=== PATIENT | male | born 1945 | race Caucasian/White ===

== ENCOUNTER 2019-03-02 11:11 | Inpatient (IN) | payer MEDICARE ==
[2019-03-02 12:28] LABS: O2 DELIVERY DEVICE ROOM AIR
[2019-03-02 12:36] LABS: BICARBONATE,ARTERIAL 31.6 mm/L (22.0-26.0); O2 SATURATION ARTERIAL 70 % (95-98); PCO2 ARTERIAL 61 mm/Hg0 (35-45); PO2 ARTERIAL 41 mm/Hg (80-100)
[2019-03-02 12:45] LABS: CHLORIDE,CL 102 mEq/L (98-106); SODIUM,NA 141 mEq/L (136-145)
[2019-03-02] MEDS: Levofloxacin/Dextrose 5%-Water 500 MG in Premix Bag 1 BAG IV SCH (13:00)
[2019-03-02] MEDS ORDERED: Sodium Chloride 0.9% 10 ML Syringe FLUSH PRN (13:01)
[2019-03-02] MEDS ORDERED: Temazepam 15 MG Cap PO PRN (13:01)
[2019-03-02] MEDS ORDERED: Formoterol/Mometasone 200-5 MCG 8.8 GM Inhaler IH PRN (13:03)
[2019-03-02] MEDS: methylPREDNISolone Sodium Succinate 125 MG/2 ML SDV IVPUSH SCH (13:04)
[2019-03-02] MEDS ORDERED: Albuterol 0.083% 2.5 MG/3 ML Neb Soln NEB PRN (13:05)
[2019-03-02] MEDS ORDERED: Levofloxacin/Dextrose 5%-Water 100 ML IV ONE (13:06)
[2019-03-02] MEDS: Albuterol/Ipratropium 3.0-0.5 MG/3 ML Neb Soln NEB SCH ×2 (15:45→20:03)
[2019-03-02] MEDS: Enoxaparin 40 MG/0.4 ML Syringe SUBCUT SCH (15:46)
[2019-03-03] MEDS: Folic Acid 1 MG Tab PO SCH (07:58)
[2019-03-03] MEDS: Finasteride 5 MG Tab PO SCH (07:58)
[2019-03-03] MEDS: Tamsulosin 0.4 MG Cap.ER PO SCH (07:58)
[2019-03-03] MEDS: Albuterol/Ipratropium 3.0-0.5 MG/3 ML Neb Soln NEB SCH ×4 (07:58→20:41)
[2019-03-03] MEDS: Pantoprazole 40 MG Tab.CR PO SCH (07:58)
[2019-03-03] MEDS: atorvaSTATin 20 MG Tab PO SCH (07:59)
[2019-03-03] MEDS: amLODIPine 2.5 MG Tab PO SCH (07:59)
[2019-03-03] MEDS: Lisinopril 20 MG Tab PO SCH (07:59)
[2019-03-03] MEDS: Metoprolol Succinate 25 MG Tab.ER PO SCH (07:59)
[2019-03-03] MEDS: Aspirin 81 MG Tab.EC PO SCH (07:59)
[2019-03-03] MEDS: methylPREDNISolone Sodium Succinate 125 MG/2 ML SDV IVPUSH SCH ×2 (08:00→15:43)
--- NOTE | 2019-03-03 09:47 | PCM.PN ---
- General Info Date of Service: 03/03/19 Admission Dx/Problem (Free Text): COPD Exacerbation, severe chronic disease Functional Status: Reports: Pain Controlled, Tolerating Diet, Ambulating - Review of Systems General: Reports: Weakness, Fatigue. Denies: Fever, Malaise HEENT: Denies: Rhinitis Pulmonary: Reports: Shortness of Breath, Cough, Sputum, Wheezing Cardiovascular: Reports: Edema. Denies: Chest Pain, Lightheadedness Gastrointestinal: Denies: Abdominal Pain, Nausea, Vomiting Genitourinary: Reports: No Symptoms Musculoskeletal: Reports: No Symptoms Skin: Reports: No Symptoms Neurological: Reports: No Symptoms - Patient Data Vitals - Most Recent: Last Vital Signs Temp 97.7 F 03/03/19 07:01 Pulse 55 L 03/03/19 07:59 Resp 20 03/03/19 07:01 BP 139/68 03/03/19 07:59 Pulse Ox 92 L 03/03/19 07:01 Weight - Most Recent: 201 lb Lab Results Last 24 Hours: Laboratory Results - last 24 hr 03/02/19 03/02/19 03/02/19 Range/Units 12:15 12:25 12:25 WBC 7.6 (5.0-10.0) 10^3/uL RBC 4.89 (4.50-6.00) 10^6/uL Hgb 17.8 (14.0-18.0) g/dL Hct 54.3 H (40.0-54.0) % MCV 111.0 H (82.0-94.0) fL MCH 36.4 H (27.0-32.0) pg MCHC 32.8 L (33.0-38.0) g/dL RDW Coeff of Nasim 14.0 (11.0-15.0) % Plt Count 237 (150-400) 10^3/uL Neut % (Auto) 72.3 (35-85) % Lymph % (Auto) 13.5 (10-55) % [place] % (Auto) 11.0 (0-16) % Eos % (Auto) 2.8 (0-5) % Baso % (Auto) 0.4 (0-3) % Neut # (Auto) 5.48 (1.80-7.00) 10^3/uL Lymph # (Auto) 1.02 (1.00-4.80) 10^3/uL [place] # (Auto) 0.83 H (0.00-0.80) 10^3/uL Eos # (Auto) 0.21 (0.00-0.45) 10^3/uL Baso # (Auto) 0.03 10^3/uL D-Dimer, Quantitative (0.00-0.50) ABG pH 7.32 L (7.35-7.45) ABG pCO2 61 H (35-45) mm/Hg0 ABG pO2 41 L (80-100) mm/Hg ABG HCO3 31.6 H (22.0-26.0) mm/L ABG O2 Saturation 70 L (95-98) % ABG Base Excess 6.0 H (-2.0-3.0) O2 Delivery Device Room air Sodium (136-145) mEq/L Potassium (3.5-5.0) mEq/L Chloride (98-106) mEq/L Carbon Dioxide (21-32) mmol/L BUN (7-18) mg/dL Creatinine (0.7-1.3) mg/dL Est Cr Clr Drug Dosing Estimated GFR (MDRD) (>=60) mL/min Glucose (75-99) mg/dL Calcium (8.4-10.1) mg/dL Total Bilirubin (0.0-1.0) mg/dL AST (15-37) U/L ALT (12-78) U/L Alkaline Phosphatase (46-116) U/L Troponin I < 0.017 (0.00-0.06) ng/mL C-Reactive Protein (0.2-0.8) mg/dL NT-Pro-B Natriuret Pep 710 (0-1000) pg/mL Total Protein (6.4-8.2) g/dL Albumin (3.4-5.0) g/dL Urine Color (YELLOW) Urine Appearance (CLEAR) Urine pH (4.5-8.0) Ur Specific [place] (1.003-1.020) Urine Protein (NEGATIVE) mg/dL Urine Glucose (UA) (NEGATIVE) mg/dL Urine Ketones (NEGATIVE) mg/dL Urine Occult Blood (NEGATIVE) Urine Nitrite (NEGATIVE) Urine Bilirubin (NEGATIVE) Urine Urobilinogen (0.2-1.0) EU/dL Ur Leukocyte Esterase (NEGATIVE) Urine RBC (0-5) /HPF Urine WBC (0-5) /HPF 03/02/19 03/02/19 03/02/19 Range/Units 12:25 13:01 13:23 WBC (5.0-10.0) 10^3/uL RBC (4.50-6.00) 10^6/uL Hgb (14.0-18.0) g/dL Hct (40.0-54.0) % MCV (82.0-94.0) fL MCH (27.0-32.0) pg MCHC (33.0-38.0) g/dL RDW Coeff of [place]im (11.0-15.0) % Plt Count (150-400) 10^3/uL Neut % (Auto) (35-85) % Lymph % (Auto) (10-55) % [place] % (Auto) (0-16) % Eos % (Auto) (0-5) % Baso % (Auto) (0-3) % Neut # (Auto) (1.80-7.00) 10^3/uL Lymph # (Auto) (1.00-4.80) 10^3/uL [place] # (Auto) (0.00-0.80) 10^3/uL Eos # (Auto) (0.00-0.45) 10^3/uL Baso # (Auto) 10^3/uL D-Dimer, Quantitative 0.47 (0.00-0.50) ABG pH (7.35-7.45) ABG pCO2 (35-45) mm/Hg0 ABG pO2 (80-100) mm/Hg ABG HCO3 (22.0-26.0) mm/L ABG O2 Saturation (95-98) % ABG Base Excess (-2.0-3.0) O2 Delivery Device Sodium 141 (136-145) mEq/L Potassium 4.5 (3.5-5.0) mEq/L Chloride 102 (98-106) mEq/L Carbon Dioxide 36 H (21-32) mmol/L BUN 9 (7-18) mg/dL Creatinine 1.0 (0.7-1.3) mg/dL Est Cr Clr Drug Dosing TNP Estimated GFR (MDRD) > 60 (>=60) mL/min Glucose 119 H (75-99) mg/dL Calcium 8.8 (8.4-10.1) mg/dL Total Bilirubin 0.7 (0.0-1.0) mg/dL AST 12 L (15-37) U/L ALT 23 (12-78) U/L Alkaline Phosphatase 75 (46-116) U/L Troponin I (0.00-0.06) ng/mL C-Reactive Protein 1.9 H (0.2-0.8) mg/dL NT-Pro-B Natriuret Pep (0-1000) pg/mL Total Protein 6.5 (6.4-8.2) g/dL Albumin 3.4 (3.4-5.0) g/dL Urine Color Yellow (YELLOW) Urine Appearance Clear (CLEAR) Urine pH 5.0 (4.5-8.0) Ur Specific [place] <= 1.005 (1.003-1.020) Urine Protein Negative (NEGATIVE) mg/dL Urine Glucose (UA) Negative (NEGATIVE) mg/dL Urine Ketones Negative (NEGATIVE) mg/dL Urine Occult Blood Negative (NEGATIVE) Urine Nitrite Negative (NEGATIVE) Urine Bilirubin Negative (NEGATIVE) Urine Urobilinogen 0.2 (0.2-1.0) EU/dL Ur Leukocyte Esterase Negative (NEGATIVE) Urine RBC Not seen (0-5) /HPF Urine WBC Not seen (0-5) /HPF Isra Results Last 24 Hours: Microbiology 03/02/19 13:01 Gram Stain - Final Sputum - Expectorated Sputum Culture - Preliminary Med Orders - Current: Current Medications Albuterol (Proventil Neb Soln) 2.5 mg NEB Q4H PRN PRN Reason: Dyspnea Albuterol/Ipratropium (Duoneb 3.0-0.5 Mg/3 Ml) 3 ml NEB QIDRT [facility] Last Admin: 03/03/19 07:58 Dose: 3 ml Amlodipine Besylate (Norvasc) 7.5 mg PO DAILY [facility] Last Admin: 03/03/19 07:59 Dose: 7.5 mg Aspirin (Halfprin) 81 mg PO DAILY [facility] Last Admin: 03/03/19 07:59 Dose: 81 mg Atorvastatin Calcium (Lipitor) 20 mg PO DAILY [facility] Last Admin: 03/03/19 07:59 Dose: 20 mg Enoxaparin Sodium (Lovenox) 40 mg SUBCUT Q24H [facility] Last Admin: 03/02/19 15:46 Dose: 40 mg Finasteride (Proscar) 5 mg PO DAILY [facility] Last Admin: 03/03/19 07:58 Dose: 5 mg Folic Acid (Folic Acid) 1 mg PO DAILY [facility] Last Admin: 03/03/19 07:58 Dose: 1 mg Levofloxacin/Dextrose 500 mg/ (Premix) 100 mls @ 100 mls/hr IV Q24H [facility] Last Admin: 03/02/19 13:00 Dose: 100 mls/hr Lisinopril (Prinivil) 20 mg PO DAILY [facility] Last Admin: 03/03/19 07:59 Dose: 20 mg Methylprednisolone Sodium Succinate (Solu-Medrol) 125 mg IVPUSH BID@0800,1600 [facility] Last Admin: 03/03/19 08:00 Dose: 125 mg Metoprolol Succinate (Toprol Xl) 50 mg PO DAILY [facility] Last Admin: 03/03/19 07:59 Dose: 50 mg Mometasone Furoate/Formoterol Fumar (Dulera 200-5 Mcg) 2 puff IH BID PRN PRN Reason: Shortness of Breath Pantoprazole Sodium (Protonix) 40 mg PO DAILY [facility] Last Admin: 03/03/19 07:58 Dose: 40 mg Sodium Chloride (Saline Flush) 10 ml FLUSH ASDIRECTED PRN PRN Reason: Keep Vein Open Tamsulosin HCl (Flomax) 0.4 mg PO DAILY [facility] Last Admin: 03/03/19 07:58 Dose: 0.4 mg Temazepam (Restoril) 15 mg PO BEDTIME PRN PRN Reason: Sleep Discontinued Medications Levofloxacin/Dextrose (Levaquin In D5w 500 Mg/100 Ml) Confirm Administered Dose 100 mls @ as directed IV .STK-MED ONE Stop: 03/02/19 13:07 Last Admin: 03/02/19 14:43 Dose: Not Given - Exam Quality Assessment: Supplemental Oxygen General: Alert, Oriented HEENT: Mucous Membr. Moist/[place] Neck: Supple Lungs: Decreased Breath Sounds, Rhonchi, Wheezing Cardiovascular: Regular Rate, Regular Rhythm GI/Abdominal Exam: Normal Bowel Sounds, Soft, Non-Tender Extremities: Normal Inspection, No Pedal Edema Skin: Warm, Dry Neurological: No New Focal Deficit - Problem List & Annotations (1) COPD exacerbation SNOMED Code(s): 677100118 Code(s): J44.1 - CHRONIC OBSTRUCTIVE PULMONARY DISEASE W (ACUTE) EXACERBATION Status: Acute Priority: High Current Visit: Yes Annotation/ Comment:: severe COPD with exacerbation - Problem List Review Problem List Initiated/Reviewed/Updated: Yes - Assessment Assessment:: COPD Exacerbation - Plan Plan:: Patient continues to feel short of breath but states better than on admit. Relates has chronic shortness of breath but is not on oxygen at home. Oxygen on at 3 liters to keep sats greater than 92%. Lung sounds noted to have wheezing throughout, rhonchi in left lower lobe, left upper lobe. Appetite is good. Afebrile. WBC today 7.6. D-Dimer was negative. CRP 1.7. Sputum culture shows gram positive cocci. Will continue with nebs, steroids and Levaquin. Oxygen. Possible discharge home tomorrow.
[2019-03-03] MEDS: Levofloxacin/Dextrose 5%-Water 500 MG in Premix Bag 1 BAG IV SCH (14:43)
[2019-03-03] MEDS: Enoxaparin 40 MG/0.4 ML Syringe SUBCUT SCH (15:43)
[2019-03-04] MEDS: Tamsulosin 0.4 MG Cap.ER PO SCH (08:02)
[2019-03-04] MEDS: Folic Acid 1 MG Tab PO SCH (08:02)
[2019-03-04] MEDS: atorvaSTATin 20 MG Tab PO SCH (08:03)
[2019-03-04] MEDS: Aspirin 81 MG Tab.EC PO SCH (08:03)
[2019-03-04] MEDS: amLODIPine 2.5 MG Tab PO SCH (08:03)
[2019-03-04] MEDS: Lisinopril 20 MG Tab PO SCH (08:04)
[2019-03-04] MEDS: Pantoprazole 40 MG Tab.CR PO SCH (08:04)
[2019-03-04] MEDS: Finasteride 5 MG Tab PO SCH (08:04)
[2019-03-04] MEDS: Metoprolol Succinate 25 MG Tab.ER PO SCH (08:05)
[2019-03-04] MEDS: methylPREDNISolone Sodium Succinate 125 MG/2 ML SDV IVPUSH SCH (08:07)
[2019-03-04] MEDS: Albuterol/Ipratropium 3.0-0.5 MG/3 ML Neb Soln NEB SCH ×2 (08:08→11:45)
[2019-03-04 08:52] LABS: CHLORIDE,CL 103 mEq/L (98-106); SODIUM,NA 143 mEq/L (136-145)
[2019-03-04] MEDS: Levofloxacin/Dextrose 5%-Water 500 MG in Premix Bag 1 BAG IV SCH (12:25)
--- NOTE | 2019-03-04 22:01 | PCM.DCSUM1 ---
Discharge Summary - Hospital Course Free Text/Narrative:: Patient presented to clinic with increased shortness of breath, productive cough of green phlegm. Notable wheezing. No fever. Chest Xray shows LLL infiltrate versus atelectasis. Started on IV Levaquin, nebs, and solu medrol. Routine labs ordered, including ABGs Diagnosis: Stroke: No Modified [place] Scale: No Symptoms at All Modified Uriel Scale Score: 0 - Discharge Data Discharge Date: 03/04/19 Discharge Disposition: Home, Self-Care 01 Condition: Good - Discharge Diagnosis/Problem(s) (1) COPD exacerbation SNOMED Code(s): 698147636 ICD Code: J44.1 - CHRONIC OBSTRUCTIVE PULMONARY DISEASE W (ACUTE) EXACERBATION Status: Acute Priority: High Problem Details: severe COPD with exacerbation (2) Acute respiratory distress SNOMED Code(s): 921914880 ICD Code: R06.03 - ACUTE RESPIRATORY DISTRESS Status: Acute Priority: High - Patient Summary/Data Complications: none Hospital Course: Patient improved today. Has been air exchange. Still has fine wheezing. Cough has been productive. Sputum culture negative. ABGs show PO2 of 41. Remains on 3 liters of oxygen. Sats drop off oxygen, especially with activity. Labs have remained stable. Chest xray negative for infiltrate. Discharge home on oxygen. Levaquin daily, prednisone 40 mg daily. Smoking cessation discussed with patient, states has cut down but declines nicotine patch. Follow up with DR. Parker - Patient Instructions Diet: Usual Diet as Tolerated Activity: As Tolerated - Discharge Plan *PRESCRIPTION DRUG MONITORING PROGRAM REVIEWED*: No *COPY OF PRESCRIPTION DRUG MONITORING REPORT IN PATIENT JOSE: No Prescriptions/Med Rec: Levofloxacin [Levaquin] 500 mg PO DAILY #10 tablet predniSONE [Prednisone] 20 mg PO DAILY #10 tablet Home Medications: Home Meds Aspirin [Halfprin] 81 mg PO DAILY 07/09/17 [History] Budesonide/Formoterol Fumarate [Symbicort 160-4.5 Mcg Inhaler] 2 puff IH BID PRN 07/09/17 [History] Cholecalciferol (Vitamin D3) [Vitamin D3] 5,000 unit PO DAILY 07/09/17 [History] Finasteride 5 mg PO DAILY 07/09/17 [History] Folic Acid 1 mg PO DAILY 07/09/17 [History] Lisinopril 20 mg PO DAILY 07/09/17 [History] Metoprolol Succinate 50 mg PO DAILY 07/09/17 [History] Omeprazole 20 mg PO DAILY 07/09/17 [History] Tamsulosin HCl 0.4 mg PO DAILY 07/09/17 [History] Vitamin B Complex 1 each PO DAILY 07/09/17 [History] amLODIPine [Norvasc] 7.5 mg PO DAILY 07/09/17 [History] atorvaSTATin Calcium [Atorvastatin Calcium] 20 mg PO DAILY 07/09/17 [History] Levofloxacin [Levaquin] 500 mg PO DAILY #10 tablet 03/04/19 [Rx] predniSONE [Prednisone] 20 mg PO DAILY #10 tablet 03/04/19 [Rx] Patient Handouts: Chronic Obstructive Pulmonary Disease Referrals: Sanjiv Parker MD [Primary Care Provider] - (Follow up with Dr. Parker in 10 days) - Discharge Summary/Plan Comment DC Time >30 min.: No - General Info Date of Service: 03/05/19 Admission Dx/Problem (Free Text: COPD Exacerbation, severe chronic disease Functional Status: Reports: Pain Controlled, Tolerating Diet, Ambulating - Review of Systems General: Reports: Weakness, Fatigue. Denies: Fever HEENT: Reports: Rhinitis Pulmonary: Reports: Shortness of Breath, Cough, Sputum, Wheezing Cardiovascular: Reports: No Symptoms Gastrointestinal: Reports: No Symptoms Genitourinary: Reports: No Symptoms Musculoskeletal: Reports: No Symptoms Skin: Reports: No Symptoms Neurological: Reports: No Symptoms - Patient Data Vitals - Most Recent: Last Vital Signs Temp 98.0 F 03/04/19 11:35 Pulse 77 03/04/19 11:35 Resp 20 03/04/19 11:35 BP 132/65 03/04/19 11:35 Pulse Ox 93 L 03/04/19 11:35 Weight - Most Recent: 201 lb Lab Results - Last 24 hrs: Laboratory Results - last 24 hr 03/04/19 03/04/19 Range/Units 08:30 08:30 WBC 12.8 H (5.0-10.0) 10^3/uL RBC 5.06 (4.50-6.00) 10^6/uL Hgb 18.3 H* (14.0-18.0) g/dL Hct 55.7 H (40.0-54.0) % MCV 110.1 H (82.0-94.0) fL MCH 36.2 H (27.0-32.0) pg MCHC 32.9 L (33.0-38.0) g/dL RDW Coeff of Nasim 13.6 (11.0-15.0) % Plt Count 265 (150-400) 10^3/uL Neut % (Auto) 87.5 H (35-85) % Lymph % (Auto) 6.1 L (10-55) % [place] % (Auto) 6.4 (0-16) % Eos % (Auto) 0 (0-5) % Baso % (Auto) 0 (0-3) % Neut # (Auto) 11.24 H (1.80-7.00) 10^3/uL Lymph # (Auto) 0.78 L (1.00-4.80) 10^3/uL [place] # (Auto) 0.82 H (0.00-0.80) 10^3/uL Eos # (Auto) 0.00 (0.00-0.45) 10^3/uL Baso # (Auto) 0.00 10^3/uL Sodium 143 (136-145) mEq/L Potassium 4.5 (3.5-5.0) mEq/L Chloride 103 (98-106) mEq/L Carbon Dioxide 35 H (21-32) mmol/L BUN 15 D (7-18) mg/dL Creatinine 1.1 (0.7-1.3) mg/dL Est Cr Clr Drug Dosing 61.59 mL/min Estimated GFR (MDRD) > 60 (>=60) mL/min Glucose 172 H D (75-99) mg/dL Calcium 8.9 (8.4-10.1) mg/dL C-Reactive Protein < 0.2 L (0.2-0.8) mg/dL DEIRDRE Results - Last 24 hrs: Microbiology 03/02/19 13:01 Gram Stain - Final Sputum - Expectorated Sputum Culture - Final Med Orders - Current: Current Medications Discontinued Medications Albuterol (Proventil Neb Soln) 2.5 mg NEB Q4H PRN PRN Reason: Dyspnea Albuterol/Ipratropium (Duoneb 3.0-0.5 Mg/3 Ml) 3 ml NEB QIDRT [facility] Last Admin: 03/04/19 11:45 Dose: 3 ml Amlodipine Besylate (Norvasc) 7.5 mg PO DAILY [facility] Last Admin: 03/04/19 08:03 Dose: 7.5 mg Aspirin (Halfprin) 81 mg PO DAILY [facility] Last Admin: 03/04/19 08:03 Dose: 81 mg Atorvastatin Calcium (Lipitor) 20 mg PO DAILY [facility] Last Admin: 03/04/19 08:03 Dose: 20 mg Enoxaparin Sodium (Lovenox) 40 mg SUBCUT Q24H [facility] Last Admin: 03/03/19 15:43 Dose: 40 mg Finasteride (Proscar) 5 mg PO DAILY [facility] Last Admin: 03/04/19 08:04 Dose: 5 mg Folic Acid (Folic Acid) 1 mg PO DAILY [facility] Last Admin: 03/04/19 08:02 Dose: 1 mg Levofloxacin/Dextrose 500 mg/ (Premix) 100 mls @ 100 mls/hr IV Q24H [facility] Last Admin: 03/04/19 12:25 Dose: 100 mls/hr Levofloxacin/Dextrose (Levaquin In D5w 500 Mg/100 Ml) Confirm Administered Dose 100 mls @ as directed IV .STK-MED ONE Stop: 03/02/19 13:07 Last Admin: 03/02/19 14:43 Dose: Not Given Lisinopril (Prinivil) 20 mg PO DAILY [facility] Last Admin: 03/04/19 08:04 Dose: 20 mg Methylprednisolone Sodium Succinate (Solu-Medrol) 125 mg IVPUSH BID@0800,1600 [facility] Last Admin: 03/04/19 08:07 Dose: 125 mg Metoprolol Succinate (Toprol Xl) 50 mg PO DAILY [facility] Last Admin: 03/04/19 08:05 Dose: 50 mg Mometasone Furoate/Formoterol Fumar (Dulera 200-5 Mcg) 2 puff IH BID PRN PRN Reason: Shortness of Breath Pantoprazole Sodium (Protonix) 40 mg PO DAILY [facility] Last Admin: 03/04/19 08:04 Dose: 40 mg Sodium Chloride (Saline Flush) 10 ml FLUSH ASDIRECTED PRN PRN Reason: Keep Vein Open Tamsulosin HCl (Flomax) 0.4 mg PO DAILY [facility] Last Admin: 03/04/19 08:02 Dose: 0.4 mg Temazepam (Restoril) 15 mg PO BEDTIME PRN PRN Reason: Sleep - Exam Quality Assessment: Reports: Supplemental Oxygen General: Reports: Alert, Oriented HEENT: Reports: Mucous Membr. Moist/[place] Neck: Reports: Supple Lungs: Reports: Decreased Breath Sounds, Wheezing Cardiovascular: Reports: Regular Rate, Regular Rhythm GI/Abdominal Exam: Normal Bowel Sounds, Soft, Non-Tender Extremities: Normal Inspection, No Pedal Edema Skin: Reports: Warm, Dry Neurological: Reports: No New Focal Deficit
== END 2019-03-04 13:40 | disposition home or self-care (01) | DRG 192 ==
LOC: CC.FCMC 11:11 → CC.MS 11:11 → UNDOADMIN 12:06 → CC.MS 13:01
PROVIDERS: ADMIT Family Medicine; ATTEND Family Medicine
DX: J44.1 Chronic obstructive pulmonary disease with (acute) exacerbation (principal); K21.9 Gastro-esophageal reflux disease without esophagitis; M19.91 Primary osteoarthritis, unspecified site; E78.5 Hyperlipidemia, unspecified; I10 Essential (primary) hypertension; J30.9 Allergic rhinitis, unspecified; N40.0 Benign prostatic hyperplasia without lower urinary tract symptoms; D70.9 Neutropenia, unspecified; D45 Polycythemia vera; R06.02 Shortness of breath; R05 Cough
CPT/HCPCS: 36415; 36600; 71046; 80053; 82803; 83880; 84484; 85025; 86140; A4217; J1956; 80048; 81001; 85379; 87070; 87205; 93005; 94640; A9270-GY; J1650; J2930; J7620-GY

== ENCOUNTER → 2019-08-28 | Day surgery (SDC) | payer MEDICARE ==
[~2019-08-28] MED LIST: Lactated Ringers 1,000 ML IV SCH; Propofol 200 MG/20 ML SDV IV ONE; Sodium Chloride 0.9% 1,000 ML IV SCH; fentaNYL 100 MCG/2 ML SDV IV ONE
--- NOTE | 2019-08-28 14:44 | OR ---
DATE OF OPERATION: 08/28/2019 PREOPERATIVE DIAGNOSIS: POSITIVE COLOGUARD. POSTOPERATIVE DIAGNOSIS: POSITIVE COLOGUARD. SURGEON: Sanjiv Parker MD PROCEDURE: FULL-LENGTH COLONOSCOPY WITH SNARE POLYPECTOMY X9, POLYP BIOPSY X3. ANESTHESIA: MAC. COMPLICATIONS: None. SPECIMEN: A total of 11 tubular and tubulovillous lesions removed and a total of 3 villous lesions biopsied. FINDINGS: 1. Full-length colonoscopy. 2. Moderate sigmoid diverticulosis. 3. Polyps, totalling 12 with 7 tubular adenomas, 2 tubulovillous adenomas, all removed with snare; 3 larger flat villous lesions, right colon, biopsied. RECOMMENDATIONS: The patient has a large villous lesion right along the ileocecal valve, which will need definitive removal. We left 2 smaller, but still flat and elongated lesions in the hepatic flexure for GI specialty to remove. INDICATIONS: The patient was in for his routine cares. It has been some time since he had his last colonoscopy, which I believe was done in [place]. He elected to proceed with a Cologuard which was positive, and we will proceed with diagnostic scope. DESCRIPTION OF PROCEDURE: The patient was prepped and draped, placed in the left lateral decubitus position. A lubricated Olympus colonoscope was inserted and ultimately advanced to the cecum. The patient is tortuous and long, but scope passed simply and without problem. The bowel prep was fine. The cecal pouch itself appeared unremarkable. Right on the backside of the valve, the patient had an elongated flat villous lesion. Just due to the length, we elected to biopsy this x2. Near the hepatic flexure, the patient had two more elongated villous lesions, one on the ascending colon side and one on the transverse colon side, biopsies of those as well. The patient did have a small lipoma in the transverse colon as well which was biopsied and confirmed. Starting at the splenic flexure, the patient had countless polyps throughout the left colon. Most of these were tubular, I believe 7 out of 11, two of them were a little more tubulovillous. We took a total of 11 polyps from the left colon, all with snare, two in the rectal vault, one in the rectosigmoid junction, a total of four in the mid sigmoid, and a total of three near the splenic flexure. All of these came off without any problem and were all suctioned into polyp traps without any difficulty. The rectal vault upon retroflexion had no perianal lesions. Ultimately, air was suctioned and the scope removed. The patient was stable during the entire procedure and fine in the recovery room. MIA /[id number]
== END ==
LOC: CC.SDS 06:36
PROVIDERS: ATTEND Family Medicine
DX: D12.3 Benign neoplasm of transverse colon (principal); D12.0 Benign neoplasm of cecum; D12.4 Benign neoplasm of descending colon; D12.5 Benign neoplasm of sigmoid colon; D12.8 Benign neoplasm of rectum; D17.5 Benign lipomatous neoplasm of intra-abdominal organs; K57.30 Diverticulosis of large intestine without perforation or abscess without bleeding; I10 Essential (primary) hypertension; E78.5 Hyperlipidemia, unspecified; D45 Polycythemia vera; J44.9 Chronic obstructive pulmonary disease, unspecified; K21.9 Gastro-esophageal reflux disease without esophagitis; M19.90 Unspecified osteoarthritis, unspecified site; F17.210 Nicotine dependence, cigarettes, uncomplicated; Z79.82 Long term (current) use of aspirin; Z79.899 Other long term (current) drug therapy
CPT/HCPCS: 45385; J2704; J3010; J7120

== ENCOUNTER 2021-01-16 10:50 | Inpatient (IN) | payer MEDICARE ==
[2021-01-16] MEDS ORDERED: Albuterol/Ipratropium 3.0-0.5 MG/3 ML Neb Soln NEB ONE (11:34)
[2021-01-16 11:37] LABS: PTT,PARTIAL THROMBOPLSTIN TIME 27.6 SEC (23.2-32.3)
[2021-01-16 11:38] LABS: CHLORIDE,CL 100 mEq/L (98-106); SODIUM,NA 142 mEq/L (136-145)
[2021-01-16 11:46] LABS: O2 DELIVERY DEVICE PARTIAL REBREATHER
[2021-01-16 11:48] LABS: BASE EXCESS ARTERIAL 14.2 (-2.0-3.0); O2 SATURATION ARTERIAL 92 % (95-98); PCO2 ARTERIAL 88 mm/Hg0 (35-45); PO2 ARTERIAL 78 mm/Hg (80-100)
[2021-01-16] MEDS ORDERED: Acetaminophen 325 MG Tab PO PRN (13:25)
[2021-01-16] MEDS ORDERED: Albuterol 0.083% 2.5 MG/3 ML Neb Soln NEB PRN (13:25)
[2021-01-16] MEDS ORDERED: Morphine 2 MG/ML SYRINGE IVPUSH PRN (13:25)
[2021-01-16] MEDS ORDERED: Sodium Chloride 0.9% 10 ML Syringe FLUSH PRN (13:25)
[2021-01-16] MEDS ORDERED: Formoterol/Mometasone 200-5 MCG 8.8 GM Inhaler IH PRN (14:00)
[2021-01-16] MEDS ORDERED: Furosemide 40 MG/4 ML VIAL IVPUSH ONE (14:00)
--- NOTE | 2021-01-16 14:34 | EDM.PDOC ---
ED HPI GENERAL MEDICAL PROBLEM - General Chief Complaint: General Stated Complaint: LOW SATS Time Seen by Provider: 01/16/21 11:09 Source of Information: Reports: Patient History Limitations: Reports: No Limitations - History of Present Illness INITIAL COMMENTS - FREE TEXT/NARRATIVE: Jethro is a pleasant 75 year old male who presents ambulatory to the ED via private vehicle with c/o shortness of breath. He reports he was seen in the clinic [address] Parker. Was given injections and started on 10 day course of Levaquin. Had refused admission at that time. He reports while he was taking the Levaquin he was feeling better. Reports he finished his antibiotics 3 days ago and has been getting increasingly more short of breath. He reports he has a cough productive of thick green sputum. O2 sats upon presentation were 52% on RA. He does report over the weekend he was having O2 sats in the 50s as well. Does wear 5 L O2 via NC at night at home. Has been using his oxygen as needed. He denies any chest pain, fever, chills, N/V/D. He is in no acute distress despite very low O2 sats. Reports he smokes 2 ppd since he was 21 years old. Has been taking all his home breathing treatments. Onset Date: 01/13/21 Duration: Getting Worse Location: Reports: Chest Associated Symptoms: Reports: Cough, cough w sputum, Shortness of Breath. Denies: Confusion, Chest Pain, Diaphoresis, Fever/Chills, Headaches, Loss of Appetite, Malaise, Nausea/Vomiting, Rash, Seizure, Syncope, Weakness Treatments CERTIFIED MEDICINE AIDE: Reports: Breathing Treatments - Related Data Allergies Allergy/AdvReac Type Severity Reaction Status Date / Time No Known Allergies Allergy Verified 01/16/21 11:16 Home Meds: Home Meds Aspirin [Halfprin] 81 mg PO DAILY 07/09/17 [History] Budesonide/Formoterol Fumarate [Symbicort 160-4.5 Mcg Inhaler] 2 puff IH BID PRN 07/09/17 [History] Cholecalciferol (Vitamin D3) [Vitamin D3] 5,000 unit PO DAILY 07/09/17 [History] Finasteride 5 mg PO DAILY 07/09/17 [History] Folic Acid 1 mg PO DAILY 07/09/17 [History] Lisinopril 20 mg PO DAILY 07/09/17 [History] Metoprolol Succinate 50 mg PO DAILY 07/09/17 [History] Omeprazole 20 mg PO DAILY 07/09/17 [History] Tamsulosin HCl 0.4 mg PO DAILY 07/09/17 [History] Vitamin B Complex 1 each PO DAILY 07/09/17 [History] amLODIPine [Norvasc] 7.5 mg PO DAILY 07/09/17 [History] atorvaSTATin Calcium [Atorvastatin Calcium] 20 mg PO DAILY 07/09/17 [History] Ferrous Sulfate [Iron] 650 mg PO DAILY 08/27/19 [History] Fluticasone Propionate [Flonase] 2 spray NS DAILY 08/27/19 [History] Hydroxyurea 500 mg PO DAILY 08/27/19 [History] Loratadine 10 mg PO DAILY 08/27/19 [History] Roflumilast [Daliresp] 250 mcg PO DAILY 08/27/19 [History] Tiotropium [Spiriva HandiHaler] 2 mcg INH Q24H 01/16/21 [History] Past Medical History HEENT History: Reports: Allergic Rhinitis Cardiovascular History: Reports: Hypertension, SOB on Exertion Respiratory History: Reports: COPD, SOB Gastrointestinal History: Reports: GERD Genitourinary History: Reports: BPH Other Genitourinary History: Hx of prostate surgery Musculoskeletal History: Reports: Osteoarthritis Other Musculoskeletal History: Hx of back, knee, and foot surgery. Neurological History: Reports: None Psychiatric History: Reports: None Oncologic (Cancer) History: Reports: Prostate - Infectious Disease History Infectious Disease History: Reports: Chicken Pox Social & Family History - Tobacco Use Tobacco Use Status *Q: Current Every Day Tobacco User Years of Tobacco use: 54 Packs/Tins Daily: 2 - Caffeine Use Caffeine Use: Reports: Coffee, Soda - Recreational Drug Use Recreational Drug Use: No ED ROS GENERAL - Review of Systems Review Of Systems: Comprehensive ROS is negative, except as noted in HPI. ED EXAM, GENERAL - Physical Exam Exam: See Below Exam Limited By: No Limitations General Appearance: Alert, WD/WN, No Apparent Distress Eye Exam: Bilateral Eye: EOMI, PERRL Nose: Nasal Drainage Throat/Mouth: Normal Inspection, Normal Lips, Normal Teeth, Normal Gums, Normal Oropharynx, Normal Voice, No Airway Compromise Head: Atraumatic, Normocephalic Neck: Normal Inspection, Supple, Non-Tender, Full Range of Motion Respiratory/Chest: No Respiratory Distress, Decreased Breath Sounds, Crackles (LLL, LML), Wheezing (ins & exp) Cardiovascular: Normal Peripheral Pulses, Regular Rate, Rhythm, No Edema, No Gallop, No JVD, No Murmur, No Rub GI/Abdominal: Normal Bowel Sounds, Soft, Non-Tender, No Organomegaly, No Distention, No Abnormal Bruit, No Mass Back Exam: Normal Inspection, Full Range of Motion, NT Extremities: Normal Inspection, Normal Range of Motion, Non-Tender, Normal Capillary Refill, No Pedal Edema Neurological: Alert, Oriented, CN II-XII Intact, Normal Cognition, Normal Gait, Normal Reflexes, No Motor/Sensory Deficits Psychiatric: Normal Affect, Normal Mood Skin Exam: Warm, Dry, Intact, Normal Color, No Rash #1 Interpretation EKG Date: 01/16/21 Course - Vital Signs Last Recorded V/S: Last Vital Signs Temp 98.3 F 01/16/21 10:50 Pulse 78 01/16/21 10:50 Resp 28 H 01/16/21 10:50 BP 163/86 H 01/16/21 10:50 Pulse Ox 52 L 01/16/21 10:50 - Orders/Labs/Meds Orders: Active Orders 24 hr Category Date Time Status RT Aerosol Therapy [RC] ASDIRECTED Care 01/16/21 11:34 Active Chest 1V Frontal [CR] Stat Exams 01/16/21 11:14 Taken Medication Orders Acetaminophen (Acetaminophen 325 Mg Tab) 650 mg PO Q4H PRN PRN Reason: Pain (Mild 1-3)/fever Albuterol (Albuterol 0.083% 2.5 Mg/3 Ml Neb Soln) 2.5 mg NEB Q4H PRN PRN Reason: Shortness Of Breath/wheezing Albuterol/Ipratropium (Albuterol/Ipratropium 3.0-0.5 Mg/3 Ml Neb Soln) 3 ml NEB QID [facility] Aspirin (Aspirin 81 Mg Tab.Ec) 81 mg PO DAILY [facility] Atorvastatin Calcium (Atorvastatin 20 Mg Tab) 20 mg PO BEDTIME [facility] Cholecalciferol (Cholecalciferol (Vitamin D3) 25 Mcg Tab) 125 mcg PO DAILY [facility] Enoxaparin Sodium (Enoxaparin 40 Mg/0.4 Ml Syringe) 40 mg SUBCUT DAILY [facility] Finasteride (Finasteride 5 Mg Tab) 5 mg PO DAILY [facility] Fluticasone Propionate (Fluticasone Propionate Nasal [place] 16 Gm Bottle) 0 gm CATHERINE DAILY [facility] Folic Acid (Folic Acid 1 Mg Tab) 1 mg PO DAILY [facility] Hydroxyurea (Hydroxyurea 500 Mg Cap) 500 mg PO MoTuWeThFr [facility] Piperacillin Sod/Tazobactam (Sod 4.5 gm/ Sodium Chloride) 100 mls @ 25 mls/hr IV TID@0400,1200,2000 [facility] Last Admin: 01/16/21 14:40 Dose: 25 mls/hr Documented by: Lisinopril (Lisinopril 20 Mg Tab) 20 mg PO DAILY [facility] Loratadine (Loratadine 10 Mg Tab) 10 mg PO DAILY [facility] Methylprednisolone Sodium Succinate (Methylprednisolone Sodium Succinate 125 Mg/2 Ml Sdv) 125 mg IVPUSH BID [facility] Last Admin: 01/16/21 14:39 Dose: 125 mg Documented by: PREM Mometasone Furoate/Formoterol Fumar (Formoterol/Mometasone 200-5 Mcg 8.8 Gm Inhaler) 2 puff IH BID PRN PRN Reason: Shortness of Breath Morphine Sulfate (Morphine 2 Mg/Ml Syringe) 1 mg IVPUSH Q2H PRN PRN Reason: Pain (severe 7-10) Non-Formulary Medication (Amlodipine [Norvasc]) 7.5 mg PO DAILY [facility] Non-Formulary Medication (Roflumilast [Daliresp]) 250 mcg PO DAILY [facility] Pantoprazole Sodium (Pantoprazole 40 Mg Tab.Cr) 40 mg PO ACBREAKFAST [facility] Sodium Chloride (Sodium Chloride 0.9% 10 Ml Syringe) 10 ml FLUSH ASDIRECTED PRN PRN Reason: Keep Vein Open Tamsulosin HCl (Tamsulosin 0.4 Mg Cap.Er) 0.4 mg PO BEDTIME [facility] Vancomycin HCl (Pharmacy To Dose - Vancomycin) 1 dose .XX ASDIRECTED [facility] Vitamin B Complex (Vitamin B Complex Cap) 1 each PO DAILY [facility] Labs: Laboratory Tests 01/16/21 01/16/21 01/16/21 Range/Units 11:12 11:12 11:12 WBC 8.6 (5.0-10.0) 10^3/uL RBC 5.29 (4.50-6.00) 10^6/uL Hgb 18.9 H* (14.0-18.0) g/dL Hct 59.7 H (40.0-54.0) % MCV 112.9 H (82.0-94.0) fL MCH 35.7 H (27.0-32.0) pg MCHC 31.7 L (33.0-38.0) g/dL RDW Coeff of Nasim 14.4 (11.0-15.0) % Plt Count 218 (150-400) 10^3/uL Neut % (Auto) 72.4 (35-85) % Lymph % (Auto) 15.3 (10-55) % Polk % (Auto) 10.2 (0-16) % Eos % (Auto) 1.4 (0-5) % Baso % (Auto) 0.7 (0-3) % Neut # (Auto) 6.25 (1.80-7.00) 10^3/uL Lymph # (Auto) 1.32 (1.00-4.80) 10^3/uL Polk # (Auto) 0.88 H (0.00-0.80) 10^3/uL Eos # (Auto) 0.12 (0.00-0.45) 10^3/uL Baso # (Auto) 0.06 10^3/uL PT 13.0 H (9.7-12.3) SEC INR 1.20 H (0.92-1.18) APTT 27.6 (23.2-32.3) SEC D-Dimer, Quantitative 0.41 (0.00-0.50) ABG pH (7.35-7.45) ABG pCO2 (35-45) mm/Hg0 ABG pO2 (80-100) mm/Hg ABG HCO3 (22.0-26.0) mm/L ABG O2 Saturation (95-98) % ABG Base Excess (-2.0-3.0) O2 Delivery Device Oxygen Flow Rate Sodium 142 (136-145) mEq/L Potassium 4.6 (3.5-5.0) mEq/L Chloride 100 (98-106) mEq/L Carbon Dioxide 37 H (21-32) mmol/L BUN 12 (7-18) mg/dL Creatinine 1.0 (0.7-1.3) mg/dL Est Cr Clr Drug Dosing TNP Estimated GFR (MDRD) > 60 (>=60) mL/min Glucose 126 H (75-99) mg/dL Lactic Acid (0.4-2.0) mmol/L Calcium 8.7 (8.4-10.1) mg/dL Total Bilirubin 0.6 (0.0-1.0) mg/dL AST 8 L (15-37) U/L ALT 24 (12-78) U/L Alkaline Phosphatase 94 (46-116) U/L Creatine Kinase 42 (35-232) U/L Troponin I < 0.017 (0.00-0.06) ng/mL C-Reactive Protein (0.2-0.8) mg/dL NT-Pro-B Natriuret Pep 3113 H (0-1000) pg/mL Total Protein 7.2 (6.4-8.2) g/dL Albumin 3.7 (3.4-5.0) g/dL SARS CoV-2 RNA Rapid RADHA (NEGATIVE) 01/16/21 01/16/21 01/16/21 Range/Units 11:12 11:12 11:34 WBC (5.0-10.0) 10^3/uL RBC (4.50-6.00) 10^6/uL Hgb (14.0-18.0) g/dL Hct (40.0-54.0) % MCV (82.0-94.0) fL MCH (27.0-32.0) pg MCHC (33.0-38.0) g/dL RDW Coeff of Nasim (11.0-15.0) % Plt Count (150-400) 10^3/uL Neut % (Auto) (35-85) % Lymph % (Auto) (10-55) % Polk % (Auto) (0-16) % Eos % (Auto) (0-5) % Baso % (Auto) (0-3) % Neut # (Auto) (1.80-7.00) 10^3/uL Lymph # (Auto) (1.00-4.80) 10^3/uL Polk # (Auto) (0.00-0.80) 10^3/uL Eos # (Auto) (0.00-0.45) 10^3/uL Baso # (Auto) 10^3/uL PT (9.7-12.3) SEC INR (0.92-1.18) APTT (23.2-32.3) SEC D-Dimer, Quantitative (0.00-0.50) ABG pH (7.35-7.45) ABG pCO2 (35-45) mm/Hg0 ABG pO2 (80-100) mm/Hg ABG HCO3 (22.0-26.0) mm/L ABG O2 Saturation (95-98) % ABG Base Excess (-2.0-3.0) O2 Delivery Device Oxygen Flow Rate Sodium (136-145) mEq/L Potassium (3.5-5.0) mEq/L Chloride (98-106) mEq/L Carbon Dioxide (21-32) mmol/L BUN (7-18) mg/dL Creatinine (0.7-1.3) mg/dL Est Cr Clr Drug Dosing Estimated GFR (MDRD) (>=60) mL/min Glucose (75-99) mg/dL Lactic Acid 1.0 (0.4-2.0) mmol/L Calcium (8.4-10.1) mg/dL Total Bilirubin (0.0-1.0) mg/dL AST (15-37) U/L ALT (12-78) U/L Alkaline Phosphatase (46-116) U/L Creatine Kinase (35-232) U/L Troponin I (0.00-0.06) ng/mL C-Reactive Protein 1.8 H (0.2-0.8) mg/dL NT-Pro-B Natriuret Pep (0-1000) pg/mL Total Protein (6.4-8.2) g/dL Albumin (3.4-5.0) g/dL SARS CoV-2 RNA Rapid RADHA Negative (NEGATIVE) 01/16/21 Range/Units 11:45 WBC (5.0-10.0) 10^3/uL RBC (4.50-6.00) 10^6/uL Hgb (14.0-18.0) g/dL Hct (40.0-54.0) % MCV (82.0-94.0) fL MCH (27.0-32.0) pg MCHC (33.0-38.0) g/dL RDW Coeff of Nasim (11.0-15.0) % Plt Count (150-400) 10^3/uL Neut % (Auto) (35-85) % Lymph % (Auto) (10-55) % Polk % (Auto) (0-16) % Eos % (Auto) (0-5) % Baso % (Auto) (0-3) % Neut # (Auto) (1.80-7.00) 10^3/uL Lymph # (Auto) (1.00-4.80) 10^3/uL Polk # (Auto) (0.00-0.80) 10^3/uL Eos # (Auto) (0.00-0.45) 10^3/uL Baso # (Auto) 10^3/uL PT (9.7-12.3) SEC INR (0.92-1.18) APTT (23.2-32.3) SEC D-Dimer, Quantitative (0.00-0.50) ABG pH 7.28 L (7.35-7.45) ABG pCO2 88 H (35-45) mm/Hg0 ABG pO2 78 L (80-100) mm/Hg ABG HCO3 41.0 H (22.0-26.0) mm/L ABG O2 Saturation 92 L (95-98) % ABG Base Excess 14.2 H (-2.0-3.0) O2 Delivery Device Partial rebreather Oxygen Flow Rate 15.0 Sodium (136-145) mEq/L Potassium (3.5-5.0) mEq/L Chloride (98-106) mEq/L Carbon Dioxide (21-32) mmol/L BUN (7-18) mg/dL Creatinine (0.7-1.3) mg/dL Est Cr Clr Drug Dosing Estimated GFR (MDRD) (>=60) mL/min Glucose (75-99) mg/dL Lactic Acid (0.4-2.0) mmol/L Calcium (8.4-10.1) mg/dL Total Bilirubin (0.0-1.0) mg/dL AST (15-37) U/L ALT (12-78) U/L Alkaline Phosphatase (46-116) U/L Creatine Kinase (35-232) U/L Troponin I (0.00-0.06) ng/mL C-Reactive Protein (0.2-0.8) mg/dL NT-Pro-B Natriuret Pep (0-1000) pg/mL Total Protein (6.4-8.2) g/dL Albumin (3.4-5.0) g/dL SARS CoV-2 RNA Rapid RADHA (NEGATIVE) Meds: Medications Generic Name Dose Route Start Last Admin Trade Name Freq PRN Reason Stop Dose Admin Acetaminophen 650 mg 01/16/21 13:25 Acetaminophen 325 Mg Tab PO Q4H PRN Pain (Mild 1-3)/fever Albuterol 2.5 mg 01/16/21 13:25 Albuterol 0.083% 2.5 Mg/3 Ml Neb Soln NEB Q4H PRN Shortness Of Breath/wheezing Albuterol/Ipratropium 3 ml 01/16/21 16:00 Albuterol/Ipratropium 3.0-0.5 Mg/3 Ml Neb Soln NEB QID LETIC[facility] Aspirin 81 mg 01/17/21 08:00 Aspirin 81 Mg Tab.Ec PO DAILY [facility] Atorvastatin Calcium 20 mg 01/16/21 20:00 Atorvastatin 20 Mg Tab PO BEDTIME [facility] Cholecalciferol 125 mcg 01/17/21 08:00 Cholecalciferol (Vitamin D3) 25 Mcg Tab PO DAILY [facility] Enoxaparin Sodium 40 mg 01/17/21 08:00 Enoxaparin 40 Mg/0.4 Ml Syringe SUBCUT DAILY [facility] Finasteride 5 mg 01/17/21 08:00 Finasteride 5 Mg Tab PO DAILY [facility] Fluticasone Propionate 0 gm 01/17/21 08:00 Fluticasone Propionate Nasal [place] 16 Gm Bottle CATHERINE DAILY [facility] Folic Acid 1 mg 01/17/21 08:00 Folic Acid 1 Mg Tab PO DAILY [facility] Hydroxyurea 500 mg 01/17/21 08:00 Hydroxyurea 500 Mg Cap PO MoTuWeThFr [facility] Piperacillin Sod/Tazobactam 100 mls @ 25 mls/hr 01/16/21 14:15 01/16/21 14:40 Sod 4.5 gm/ Sodium Chloride IV 25 mls/hr TID@0400,1200,2000 [facility] Administration Lisinopril 20 mg 01/17/21 08:00 Lisinopril 20 Mg Tab PO DAILY [facility] Loratadine 10 mg 01/17/21 08:00 Loratadine 10 Mg Tab PO DAILY [facility] Methylprednisolone Sodium Succinate 125 mg 01/16/21 13:30 01/16/21 14:39 Methylprednisolone Sodium Succinate 125 Mg/2 Ml Sdv IVPUSH 125 mg BID [facility]IC[facility] Administration Mometasone Furoate/Formoterol Fumar 2 puff 01/16/21 14:00 Formoterol/Mometasone 200-5 Mcg 8.8 Gm Inhaler IH BID PRN Shortness of Breath Morphine Sulfate 1 mg 01/16/21 13:25 Morphine 2 Mg/Ml Syringe IVPUSH Q2H PRN Pain (severe 7-10) Non-Formulary Medication 7.5 mg 01/17/21 08:00 Amlodipine [Norvasc] PO DAILY [facility] Non-Formulary Medication 250 mcg 01/17/21 08:00 Roflumilast [Daliresp] PO DAILY [facility] Pantoprazole Sodium 40 mg 01/17/21 07:00 Pantoprazole 40 Mg Tab.Cr PO ACBREAKFAST [facility] Sodium Chloride 10 ml 01/16/21 13:25 Sodium Chloride 0.9% 10 Ml Syringe FLUSH ASDIRECTED PRN Keep Vein Open Tamsulosin HCl 0.4 mg 01/16/21 20:00 Tamsulosin 0.4 Mg Cap.Er PO BEDTIME [facility] Vancomycin HCl 1 dose 01/16/21 13:25 Pharmacy To Dose - Vancomycin .XX ASDIRECTED [facility] Vitamin B Complex 1 each 01/17/21 08:00 Vitamin B Complex Cap PO DAILY [facility] Discontinued Medications Generic Name Dose Route Start Last Admin Trade Name Freq PRN Reason Stop Dose Admin Albuterol/Ipratropium 3 ml 01/16/21 11:34 01/16/21 11:48 Albuterol/Ipratropium 3.0-0.5 Mg/3 Ml Neb Soln NEB 01/16/21 11:35 3 ml ONETIME ONE Administration Furosemide 40 mg 01/16/21 14:00 01/16/21 14:30 Furosemide 40 Mg/4 Ml Vial IVPUSH 01/16/21 14:01 40 mg ONETIME ONE Administration Departure - Departure Time of Disposition: 12:22 Disposition: Admitted As Inpatient 68 Condition: Poor Clinical Impression: COPD exacerbation Pneumonia Qualifiers: Pneumonia type: due to other aerobic Gram-negative bacteria Laterality: left Lung location: lower lobe of lung Qualified Code(s): J15.6 - Pneumonia due to other Gram-negative bacteria Hypertension Qualifiers: Hypertension type: unspecified Qualified Code(s): I10 - Essential (primary) hypertension Congestive heart failure Qualifiers: Heart failure type: systolic Heart failure chronicity: chronic Qualified Code(s): I50.22 - Chronic systolic (congestive) heart failure - Discharge Information *PRESCRIPTION DRUG MONITORING PROGRAM REVIEWED*: Not Applicable *COPY OF PRESCRIPTION DRUG MONITORING REPORT IN PATIENT JOSE: Not Applicable Sepsis Event Note (ED) - Evaluation Sepsis Screening Result: No Definite Risk - Focused Exam Vital Signs: Vital Signs Temp Pulse Resp BP Pulse Ox 01/16/21 10:50 98.3 F 78 28 H 163/86 H 52 L - Problem List & Annotations (1) COPD exacerbation SNOMED Code(s): 061943694 Code(s): J44.1 - CHRONIC OBSTRUCTIVE PULMONARY DISEASE W (ACUTE) EXACERBATION Status: Acute Priority: High Current Visit: Yes Annotation/Comment:: severe COPD with exacerbation (2) Congestive heart failure SNOMED Code(s): 89896477 Code(s): I50.9 - HEART FAILURE, UNSPECIFIED Status: Acute Current Visit: Yes Qualifiers: Heart failure type: systolic Heart failure chronicity: chronic Qualified Code(s): I50.22 - Chronic systolic (congestive) heart failure (3) Hypertension SNOMED Code(s): 73957846 Code(s): I10 - ESSENTIAL (PRIMARY) HYPERTENSION Status: Acute Current Visit: Yes Qualifiers: Hypertension type: unspecified Qualified Code(s): I10 - Essential (primary) hypertension (4) Pneumonia SNOMED Code(s): 573285193 Code(s): J18.9 - PNEUMONIA, UNSPECIFIED ORGANISM Status: Acute Current Visit: Yes Qualifiers: Pneumonia type: due to other aerobic Gram-negative bacteria Laterality: left Lung location: lower lobe of lung Qualified Code(s): J15.6 - Pneumonia due to other Gram-negative bacteria - Problem List Review Problem List Initiated/Reviewed/Updated: Yes - My Orders Last 24 Hours: My Active Orders 01/16/21 11:14 Chest 1V Frontal [CR] Stat 01/16/21 11:34 RT Aerosol Therapy [RC] ASDIRECTED - Assessment/Plan Admission H&P: Please use this note as an admission H&P Last 24 Hours: My Active Orders 01/16/21 11:14 Chest 1V Frontal [CR] Stat 01/16/21 11:34 RT Aerosol Therapy [RC] ASDIRECTED Assessment:: COPD Exacerbation LLL Pneumonia Congestive Heart Failure Hypertension Plan: Patient presents to ED with c/o shortness of breath. Upon arrival O2 sats 52% on RA. Was maintaining O2 sats >92% on 15 L NRB. Did consult with Dr. Parker, who also examined patient. Patient wishes to be DNR/DNI and does not wish for transfer to higher level of care. CXR shows small infiltrate left lung base. Admit to acute with telemetry. Will start Vanco and Zosyn until sputum culture and sensitivity available. Solumedrol BID. Duonebs QID and albuterol as needed. ProBNP elevated. Will give 40 mg Lasix IVP. Echocardiogram ordered to further evaluate. See [facility] for additional orders. Patient transferred to floor in stable condition.
[2021-01-16] MEDS: methylPREDNISolone Sodium Succinate 125 MG/2 ML SDV IVPUSH SCH ×2 (14:39→20:50)
[2021-01-16] MEDS: Piperacillin/Tazobactam 4.5 GM in Sodium Chloride 0.9% 100 ML IV SCH ×2 (14:40→20:51)
[2021-01-16] MEDS: Albuterol/Ipratropium 3.0-0.5 MG/3 ML Neb Soln NEB SCH ×2 (16:46→19:58)
[2021-01-16] MEDS: atorvaSTATin 20 MG Tab PO SCH (19:58)
[2021-01-16] MEDS: Tamsulosin 0.4 MG Cap.ER PO SCH (19:58)
[2021-01-17] MEDS: Piperacillin/Tazobactam 4.5 GM in Sodium Chloride 0.9% 100 ML IV SCH ×3 (03:42→20:51)
[2021-01-17] MEDS: Pantoprazole 40 MG Tab.CR PO SCH (06:21)
[2021-01-17 07:29] LABS: O2 DELIVERY DEVICE NON REBR MASK
[2021-01-17 07:30] LABS: BICARBONATE,ARTERIAL 43.5 mm/L (22.0-26.0); O2 SATURATION ARTERIAL 88 % (95-98); PCO2 ARTERIAL 119 mm/Hg0 (35-45); PO2 ARTERIAL 75 mm/Hg (80-100)
[2021-01-17] MEDS ORDERED: ROFLUMILAST 250 MCG PO SCH (08:00)
[2021-01-17] MEDS ORDERED: Hydroxyurea 500 MG Cap PO SCH (08:00)
[2021-01-17] MEDS: Enoxaparin 40 MG/0.4 ML Syringe SUBCUT SCH (08:02)
[2021-01-17] MEDS: Albuterol/Ipratropium 3.0-0.5 MG/3 ML Neb Soln NEB SCH ×4 (08:02→20:52)
[2021-01-17] MEDS: methylPREDNISolone Sodium Succinate 125 MG/2 ML SDV IVPUSH SCH ×2 (08:03→20:51)
[2021-01-17] MEDS ORDERED: Albuterol 0.083% 2.5 MG/3 ML Neb Soln NEB ONE (08:05)
[2021-01-17] MEDS: amLODIPine 2.5 MG Tab PO SCH (09:32)
[2021-01-17] MEDS: Vitamin B Complex Cap PO SCH (09:33)
[2021-01-17] MEDS: Aspirin 81 MG Tab.EC PO SCH (09:33)
[2021-01-17] MEDS: Lisinopril 20 MG Tab PO SCH (09:33)
[2021-01-17] MEDS: Cholecalciferol (Vitamin D3) 25 MCG Tab PO SCH (09:33)
[2021-01-17] MEDS: Loratadine 10 MG Tab PO SCH (09:33)
[2021-01-17] MEDS: Finasteride 5 MG Tab PO SCH (09:33)
[2021-01-17] MEDS: Folic Acid 1 MG Tab PO SCH (09:34)
[2021-01-17] MEDS: Fluticasone Propionate Nasal Spray 16 GM Bottle NAS SCH (09:36)
[2021-01-17] MEDS ORDERED: Morphine 2 MG/ML SYRINGE IVPUSH PRN (09:54)
[2021-01-17] MEDS ORDERED: LORazepam 2 MG/ML Syringe IVPUSH PRN (09:55)
[2021-01-17] MEDS: Nicotine 14 MG/24 Hr Patch TRDERM SCH (10:33)
--- NOTE | 2021-01-17 10:50 | PN ---
DATE: 01/17/2021 S: Mr. Oliva is a 75-year-old male admitted by [facility] yesterday for COPD exacerbation. He was admitted, started on IV antibiotics, IV steroids, oxygen. This gentleman has severe COPD and it was made very clear to him that we felt he was likely going to end up in respiratory failure. He did not want transfer, wanted to be a code level 2 and stay in our facility knowing full well we did not have vent capabilities. For the most part, he was getting along fairly well on non-rebreather with a respiratory rate anywhere from 16 to 20, was afebrile, and then around 4 a.m. started to have increased work of breathing, shortness of breath, and dropped his sats. His sats had been running in the low 90s. He was found to be unresponsive and hard to wake up around 7 a.m. An ABG was ordered. His pCO2 on admit was 88, it is up to 120, and his pH is declining. He is getting more confused as expected. He has made it very clear with his yesterday after admission that he did not want intubation and wanted to be a DNR. I went in to examine him. He was arousable. He could look at me. He tried to make conversation, although it was nonsensical. O: VITAL SIGNS: His respiratory rate was around 28. LUNGS: Poor air movement throughout with both inspiratory and expiratory wheezing. CARDIAC: Tones were slightly tachy and regular. ABDOMEN: Nontender. EXTREMITIES: No edema was seen. LABORATORY DATA: Lab work is reviewed. CBC is essentially unchanged, but his pH has dropped from 728 to 717 with a pCO2 increasing from 88 to 119 and rest of his labs are stable. ASSESSMENT: 1. RESPIRATORY FAILURE. 2. ADVANCED CHRONIC OBSTRUCTIVE PULMONARY DISEASE WITH EXACERBATION. 3. HISTORY OF POLYCYTHEMIA. P: The is coming. We will have a further conversation. We will keep him comfortable at this point. He is on a non-rebreather. We are going to give him some continuous nebs this morning and they want nothing more aggressive done. GUNNAR/MODL /[id number]
[2021-01-17] MEDS: atorvaSTATin 20 MG Tab PO SCH (20:52)
[2021-01-17] MEDS: Tamsulosin 0.4 MG Cap.ER PO SCH (20:52)
[2021-01-18] MEDS: Piperacillin/Tazobactam 4.5 GM in Sodium Chloride 0.9% 100 ML IV SCH ×3 (03:35→19:32)
[2021-01-18] MEDS: Pantoprazole 40 MG Tab.CR PO SCH (06:16)
[2021-01-18] MEDS: methylPREDNISolone Sodium Succinate 125 MG/2 ML SDV IVPUSH SCH ×2 (07:52→19:32)
[2021-01-18] MEDS: amLODIPine 2.5 MG Tab PO SCH (07:52)
[2021-01-18] MEDS: Cholecalciferol (Vitamin D3) 25 MCG Tab PO SCH (07:53)
[2021-01-18] MEDS: Folic Acid 1 MG Tab PO SCH (07:55)
[2021-01-18] MEDS: Vitamin B Complex Cap PO SCH (07:55)
[2021-01-18] MEDS: Aspirin 81 MG Tab.EC PO SCH (07:55)
[2021-01-18] MEDS: Lisinopril 20 MG Tab PO SCH (07:56)
[2021-01-18] MEDS: Finasteride 5 MG Tab PO SCH (07:56)
[2021-01-18] MEDS: Hydroxyurea 500 MG Cap PO SCH (07:57)
[2021-01-18] MEDS: Loratadine 10 MG Tab PO SCH (07:57)
[2021-01-18] MEDS: Albuterol/Ipratropium 3.0-0.5 MG/3 ML Neb Soln NEB SCH ×4 (07:58→19:32)
[2021-01-18] MEDS: Enoxaparin 40 MG/0.4 ML Syringe SUBCUT SCH (07:58)
[2021-01-18] MEDS: Nicotine 14 MG/24 Hr Patch TRDERM SCH (07:58)
[2021-01-18] MEDS: Fluticasone Propionate Nasal Spray 16 GM Bottle NAS SCH (08:05)
--- NOTE | 2021-01-18 14:13 | PCM.PN ---
- General Info Date of Service: 01/18/21 Admission Dx/Problem (Free Text): COPD Exacerbation with respiratory failure Lower lung infection CHF Subjective Update: Patient sitting up at edge of bed, eating breakfast. Does feel short of breath but states chronic in nature and "need to go outside for fresh air". Has been requesting to go out and have cigarette often with staff. Does have nicotine patch on and admits does help with cravings. Continues on 15 liters of oxygen to keep sat at 92-93%. Has been afebrile. Ambulating short distance to bathroom, dyspneic with exertion. No pain today, admits to pain yesterday in chest due to cough but that has improved. Blood pressure 141/67 today. Functional Status: Reports: Pain Controlled, Tolerating Diet, Ambulating, Urinating - Review of Systems General: Reports: Weakness, Fatigue, Malaise HEENT: Denies: Ear Pain, Sinus Congestion, Rhinitis Pulmonary: Reports: Shortness of Breath, Cough, Sputum Cardiovascular: Reports: Edema. Denies: Chest Pain, Lightheadedness Gastrointestinal: Denies: Abdominal Pain, Nausea, Vomiting Genitourinary: Reports: No Symptoms Musculoskeletal: Reports: No Symptoms Skin: Reports: No Symptoms Neurological: Reports: Weakness - Patient Data Vitals - Most Recent: Last Vital Signs Temp 97.9 F 01/18/21 07:51 Pulse 80 01/18/21 07:51 Resp 20 01/18/21 07:51 BP 141/67 H 01/18/21 07:56 Pulse Ox 93 L 01/18/21 07:51 Weight - Most Recent: 223 lb 9.6 oz I&O - Last 24 Hours: Intake & Output 01/17/21 01/18/21 01/18/21 22:59 06:59 14:59 Intake Total 500 Output Total 700 750 Balance -700 -250 Lab Results Last 24 Hours: Laboratory Results - last 24 hr 01/18/21 01/18/21 01/18/21 Range/Units 07:20 07:20 07:20 WBC 12.6 H (5.0-10.0) 10^3/uL RBC 4.98 (4.50-6.00) 10^6/uL Hgb 18.0 (14.0-18.0) g/dL Hct 57.9 H (40.0-54.0) % MCV 116.3 H (82.0-94.0) fL MCH 36.1 H (27.0-32.0) pg MCHC 31.1 L (33.0-38.0) g/dL RDW Coeff of Nasim 14.3 (11.0-15.0) % Plt Count 205 (150-400) 10^3/uL Add Manual Diff Yes Neutrophils % (Manual) 91 H (35-85) % Band Neutrophils % 1 (0-5) % Lymphocytes % (Manual) 5 L (21-55) % Monocytes % (Manual) 3 (2-12) % Sodium 144 (136-145) mEq/L Potassium 5.2 H (3.5-5.0) mEq/L Chloride 101 (98-106) mEq/L Carbon Dioxide 41 H* (21-32) mmol/L BUN 21 H (7-18) mg/dL Creatinine 1.2 (0.7-1.3) mg/dL Est Cr Clr Drug Dosing 54.83 mL/min Estimated GFR (MDRD) 59 L (>=60) mL/min Glucose 185 H (75-99) mg/dL Calcium 8.6 (8.4-10.1) mg/dL C-Reactive Protein 0.3 (0.2-0.8) mg/dL NT-Pro-B Natriuret Pep 1498 H (0-1000) pg/mL Med Orders - Current: Current Medications Acetaminophen (Acetaminophen 325 Mg Tab) 650 mg PO Q4H PRN PRN Reason: Pain (Mild 1-3)/fever Last Admin: 01/17/21 17:26 Dose: 650 mg Documented by: Albuterol (Albuterol 0.083% 2.5 Mg/3 Ml Neb Soln) 2.5 mg NEB Q4H PRN PRN Reason: Shortness Of Breath/wheezing Last Admin: 01/18/21 02:34 Dose: 2.5 mg Documented by: Albuterol/Ipratropium (Albuterol/Ipratropium 3.0-0.5 Mg/3 Ml Neb Soln) 3 ml NEB QID [facility] Last Admin: 01/18/21 12:58 Dose: 3 ml Documented by: Amlodipine Besylate (Amlodipine 2.5 Mg Tab) 7.5 mg PO DAILY [facility] Last Admin: 01/18/21 07:52 Dose: 7.5 mg Documented by: Aspirin (Aspirin 81 Mg Tab.Ec) 81 mg PO DAILY [facility] Last Admin: 01/18/21 07:55 Dose: 81 mg Documented by: Atorvastatin Calcium (Atorvastatin 20 Mg Tab) 20 mg PO BEDTIME [facility] Last Admin: 01/17/21 20:52 Dose: 20 mg Documented by: Cholecalciferol (Cholecalciferol (Vitamin D3) 25 Mcg Tab) 125 mcg PO DAILY [facility] Last Admin: 01/18/21 07:53 Dose: 125 mcg Documented by: Enoxaparin Sodium (Enoxaparin 40 Mg/0.4 Ml Syringe) 40 mg SUBCUT DAILY [facility] Last Admin: 01/18/21 07:58 Dose: 40 mg Documented by: Finasteride (Finasteride 5 Mg Tab) 5 mg PO DAILY [facility] Last Admin: 01/18/21 07:56 Dose: 5 mg Documented by: Fluticasone Propionate (Fluticasone Propionate Nasal [place] 16 Gm Bottle) 0 gm CATHERINE DAILY [facility] Last Admin: 01/18/21 08:05 Dose: Not Given Documented by: Folic Acid (Folic Acid 1 Mg Tab) 1 mg PO DAILY [facility] Last Admin: 01/18/21 07:55 Dose: 1 mg Documented by: Hydroxyurea (Hydroxyurea 500 Mg Cap) 1,000 mg PO SuSa@0800 [facility] Hydroxyurea (Hydroxyurea 500 Mg Cap) 500 mg PO MoTuWeThFr@0800 [facility] Last Admin: 01/18/21 07:57 Dose: 500 mg Documented by: Piperacillin Sod/Tazobactam (Sod 4.5 gm/ Sodium Chloride) 100 mls @ 25 mls/hr IV TID@0400,1200,2000 [facility] Last Admin: 01/18/21 12:58 Dose: 25 mls/hr Documented by: Vancomycin HCl 1.25 gm/ Sodium (Chloride) 250 mls @ 166.667 mls/hr IV BID@1000,2200 [facility] Lisinopril (Lisinopril 20 Mg Tab) 20 mg PO DAILY [facility] Last Admin: 01/18/21 07:56 Dose: 20 mg Documented by: Loratadine (Loratadine 10 Mg Tab) 10 mg PO DAILY [facility] Last Admin: 01/18/21 07:57 Dose: 10 mg Documented by: Lorazepam (Lorazepam 2 Mg/Ml Syringe) 1 - 2 mg IVPUSH ASDIRECTED PRN PRN Reason: Agitation Methylprednisolone Sodium Succinate (Methylprednisolone Sodium Succinate 125 Mg/2 Ml Sdv) 125 mg IVPUSH BID [facility] Last Admin: 01/18/21 07:52 Dose: 125 mg Documented by: Mometasone Furoate/Formoterol Fumar (Formoterol/Mometasone 200-5 Mcg 8.8 Gm Inhaler) 2 puff IH BID PRN PRN Reason: Shortness of Breath Morphine Sulfate (Morphine 2 Mg/Ml Syringe) 1 mg IVPUSH Q1H PRN PRN Reason: Shortness of Breath Nicotine (Nicotine 14 Mg/24 Hr Patch) 14 mg TRDERM DAILY [facility] Last Admin: 01/18/21 07:58 Dose: 14 mg Documented by: Roflumilast [ Daliresp] 250 Mcg Tablet Pt Own 0 mcg PO DAILY [facility] Pantoprazole Sodium (Pantoprazole 40 Mg Tab.Cr) 40 mg PO ACBREAKFAST [facility] Last Admin: 01/18/21 06:16 Dose: 40 mg Documented by: Sodium Chloride (Sodium Chloride 0.9% 10 Ml Syringe) 10 ml FLUSH ASDIRECTED PRN PRN Reason: Keep Vein Open Tamsulosin HCl (Tamsulosin 0.4 Mg Cap.Er) 0.4 mg PO BEDTIME [facility] Last Admin: 01/17/21 20:52 Dose: 0.4 mg Documented by: Vancomycin HCl (Pharmacy To Dose - Vancomycin) 1 dose .XX ASDIRECTED [facility] Vitamin B Complex (Vitamin B Complex Cap) 1 each PO DAILY [facility] Last Admin: 01/18/21 07:55 Dose: 1 each Documented by: Discontinued Medications Albuterol (Albuterol 0.083% 2.5 Mg/3 Ml Neb Soln) 5 mg NEB ONETIME ONE Stop: 01/17/21 08:06 Last Admin: 01/17/21 08:11 Dose: 5 mg Documented by: Albuterol/Ipratropium (Albuterol/Ipratropium 3.0-0.5 Mg/3 Ml Neb Soln) 3 ml NEB ONETIME ONE Stop: 01/16/21 11:35 Last Admin: 01/16/21 11:48 Dose: 3 ml Documented by: Furosemide (Furosemide 40 Mg/4 Ml Vial) 40 mg IVPUSH ONETIME ONE Stop: 01/16/21 14:01 Last Admin: 01/16/21 14:30 Dose: 40 mg Documented by: Hydroxyurea (Hydroxyurea 500 Mg Cap) 500 mg PO MoTuWeThFr [facility] Last Admin: 01/17/21 09:58 Dose: 500 mg Documented by: Vancomycin HCl 1.25 gm/ Sodium (Chloride) 250 mls @ 166.667 mls/hr IV BID@0630 ,1830 [facility] Last Admin: 01/18/21 06:16 Dose: 166.667 mls/hr Documented by: Morphine Sulfate (Morphine 2 Mg/Ml Syringe) 1 mg IVPUSH Q2H PRN PRN Reason: Pain (severe 7-10) - Exam Quality Assessment: Supplemental Oxygen General: Alert, Oriented, Cooperative HEENT: Mucous Membr. Moist/Bibo Neck: Supple Lungs: Decreased Breath Sounds, Wheezing Cardiovascular: Regular Rate, Regular Rhythm GI/Abdominal Exam: Normal Bowel Sounds, Soft, Non-Tender Extremities: Normal Inspection, Pedal Edema (2+ pitting edema in feet/lower extremity) Skin: Warm, Dry Neurological: No New Focal Deficit - Patient Data Lab Results Last 24 hrs: Laboratory Results - last 24 hr 01/18/21 01/18/21 01/18/21 Range/Units 07:20 07:20 07:20 WBC 12.6 H (5.0-10.0) 10^3/uL RBC 4.98 (4.50-6.00) 10^6/uL Hgb 18.0 (14.0-18.0) g/dL Hct 57.9 H (40.0-54.0) % MCV 116.3 H (82.0-94.0) fL MCH 36.1 H (27.0-32.0) pg MCHC 31.1 L (33.0-38.0) g/dL RDW Coeff of Nasim 14.3 (11.0-15.0) % Plt Count 205 (150-400) 10^3/uL Add Manual Diff Yes Neutrophils % (Manual) 91 H (35-85) % Band Neutrophils % 1 (0-5) % Lymphocytes % (Manual) 5 L (21-55) % Monocytes % (Manual) 3 (2-12) % Sodium 144 (136-145) mEq/L Potassium 5.2 H (3.5-5.0) mEq/L Chloride 101 (98-106) mEq/L Carbon Dioxide 41 H* (21-32) mmol/L BUN 21 H (7-18) mg/dL Creatinine 1.2 (0.7-1.3) mg/dL Est Cr Clr Drug Dosing 54.83 mL/min Estimated GFR (MDRD) 59 L (>=60) mL/min Glucose 185 H (75-99) mg/dL Calcium 8.6 (8.4-10.1) mg/dL C-Reactive Protein 0.3 (0.2-0.8) mg/dL NT-Pro-B Natriuret Pep 1498 H (0-1000) pg/mL Result Diagrams: 01/18/21 07:20 01/18/21 07:20 Sepsis Event Note - Evaluation Sepsis Screening Result: No Definite Risk - Focused Exam Vital Signs: Vital Signs Temp Pulse Resp BP BP Pulse Ox 01/18/21 07:56 141/67 H 01/18/21 07:52 141/80 H 01/18/21 07:51 97.9 F 80 20 141/67 H 93 L 01/18/21 03:48 98.6 F 91 32 H 127/64 91 L - Problem List & Annotations (1) COPD exacerbation SNOMED Code(s): 190380931 Code(s): J44.1 - CHRONIC OBSTRUCTIVE PULMONARY DISEASE W (ACUTE) EXACERBATION Status: Acute Priority: High Current Visit: Yes Annotation/Comment:: severe COPD with exacerbation (2) Congestive heart failure SNOMED Code(s): 90989647 Code(s): I50.9 - HEART FAILURE, UNSPECIFIED Status: Acute Priority: High Current Visit: Yes Qualifiers: Heart failure type: systolic Heart failure chronicity: chronic Qualified Code(s): I50.22 - Chronic systolic (congestive) heart failure (3) Acute respiratory distress SNOMED Code(s): 531043146 Code(s): R06.03 - ACUTE RESPIRATORY DISTRESS Status: Acute Priority: High Current Visit: Yes - Problem List Review Problem List Initiated/Reviewed/Updated: Yes - My Orders Last 24 Hours: My Active Orders 01/18/21 22:00 Vancomycin 1.25 gm Sodium Chloride 0.9% [Normal Saline (AdvBag)] 250 ml IV B ID@[id number] - Assessment Assessment:: COPD Exacerbation with lower respiratory infection/respiratory failure Acute on chronic systolic heart failure - Plan Plan:: Patient much improved from yesterday. WBC elevated yet at 12.6. CRP 0.3. ProBNP has improved to 1498. Chest xray shows increased infiltrate. Will continue with IV Vancomycin and zosyn. Repeat labs in am.
[2021-01-18] MEDS: Tamsulosin 0.4 MG Cap.ER PO SCH (19:32)
[2021-01-18] MEDS: atorvaSTATin 20 MG Tab PO SCH (19:33)
[2021-01-19] MEDS: Piperacillin/Tazobactam 4.5 GM in Sodium Chloride 0.9% 100 ML IV SCH ×2 (03:57→11:52)
[2021-01-19] MEDS: Pantoprazole 40 MG Tab.CR PO SCH (06:51)
[2021-01-19] MEDS: Albuterol/Ipratropium 3.0-0.5 MG/3 ML Neb Soln NEB SCH ×3 (07:40→16:16)
[2021-01-19] MEDS: Cholecalciferol (Vitamin D3) 25 MCG Tab PO SCH (07:41)
[2021-01-19] MEDS: amLODIPine 2.5 MG Tab PO SCH (07:42)
[2021-01-19] MEDS: Lisinopril 20 MG Tab PO SCH (07:42)
[2021-01-19] MEDS: Hydroxyurea 500 MG Cap PO SCH (07:43)
[2021-01-19] MEDS: Aspirin 81 MG Tab.EC PO SCH (07:43)
[2021-01-19] MEDS: Vitamin B Complex Cap PO SCH (07:43)
[2021-01-19] MEDS: Finasteride 5 MG Tab PO SCH (07:44)
[2021-01-19] MEDS: Loratadine 10 MG Tab PO SCH (07:44)
[2021-01-19] MEDS: Folic Acid 1 MG Tab PO SCH (07:44)
[2021-01-19] MEDS: Nicotine 14 MG/24 Hr Patch TRDERM SCH (07:45)
[2021-01-19] MEDS: methylPREDNISolone Sodium Succinate 125 MG/2 ML SDV IVPUSH SCH (07:45)
[2021-01-19] MEDS: Enoxaparin 40 MG/0.4 ML Syringe SUBCUT SCH (07:45)
[2021-01-19] MEDS: Fluticasone Propionate Nasal Spray 16 GM Bottle NAS SCH (07:45)
[2021-01-19 08:07] LABS: CHLORIDE,CL 103 mEq/L (98-106); SODIUM,NA 144 mEq/L (136-145)
--- NOTE | 2021-01-19 13:34 | PN ---
DATE: 01/19/2021 S: Mr. Oliva was interviewed with family at his side today. They are trying to honor his wish of going home. He understands that this could be a life ending, but does want to spend whatever time he has left at home with his family. I had a long discussion with him about that. I would recommend we at least have hospice in place for that and he is willing to stay here another day. This gentleman continues to hold his own for the most part. His work of breathing seems to be hard, but he has not failed as of yet. He is maintaining his saturation with a mask at 15 L and he is saturating around 94% to 96%. O: VITAL SIGNS: On exam today, his respiratory rate is 26. LUNGS: His air movement is poor with inspiratory and expiratory wheezes. He has some right basilar rales. CARDIAC: Tones are regular and tachy. ABDOMEN: Nontender. EXTREMITIES: Have trace ankle edema. LABORATORY DATA: Lab work is reviewed and his white count is stable, kidney function is stable, and his CRP is down. ASSESSMENT: 1. PNEUMONIA. 2. CHRONIC OBSTRUCTIVE PULMONARY DISEASE EXACERBATION. 3. RESPIRATORY FAILURE. 4. POLYCYTHEMIA VERA. 5. MILD ACUTE EXACERBATION OF CHRONIC CONGESTIVE HEART FAILURE. P: Clinically, patient appears reasonably stable, although I do think at some point he is going to fail. We will continue with all of our current cares. Family are willing to allow us to have a hospice consult and this gentleman is adamant that he wants to go home, and he seems very clear on that. We will try to have everything in place for him to do so. GUNNAR/MAULIK /[id number]
[2021-01-19] MEDS ORDERED: guaiFENesin 200 MG Tab PO SCH (14:00)
--- NOTE | 2021-01-19 21:26 | DISCH ---
REASON FOR HOSPITALIZATION: Admission Diagnoses: 1. Acute respiratory distress. 2. Pneumonia. 3. Chronic obstructive pulmonary disease exacerbation. 4. Polycythemia vera. 5. Acute exacerbation of chronic congestive heart failure. DISCHARGE DIAGNOSIS: 1. BIBASILAR PNEUMONIA. 2. CHRONIC OBSTRUCTIVE PULMONARY DISEASE EXACERBATION. 3. RESPIRATORY FAILURE. 4. HYPERTENSION. 5. ACUTE EXACERBATION OF CHRONIC DIASTOLIC CONGESTIVE HEART FAILURE. 6. POLYCYTHEMIA VERA. 7. PALLIATIVE CARES. HISTORY: Mr. Oliva is a very fragile 75-year-old with known emphysema. He presented with worsening respiratory symptoms including shortness of breath, cough, sputum production. Ansley Martinez evaluated him in the emergency room and ultimately admitted him into the hospital with impending respiratory failure. He was under significant respiratory distress requiring oxygen via mask at 15 L to keep his sats above 90. He had an ABG with a PCO2 of 92 with a pH of 7.27. The patient had significant conversation with both myself and Ansley Martinez about transfer for definitive care and likely intubation; he declined. He wants to be a DNR. He was admitted to our hospital for IV antibiotics, appropriate respiratory cares, and knew the risk of staying in our facility, but did not want intubation. HOSPITAL COURSE: The patient was started on IV antibiotics in the form of vancomycin and Zosyn. He was given IV steroids, [id number] nebulizers in the form of DuoNeb and p.r.n. albuterol. He was kept on a mask. He did have on day 2 of his admission some marked change in his status with almost being obtunded. Repeat gas showed his pH to be down to 7.17 and his pCO2 was up to 120. He was able to be awakened with a sternal rub, and he started breathing better on his own, which did result in improvement in his overall respiratory status. He did not want any further significant monitoring of his respiratory status including with ABGs. Family has been present for all of his stay. They understand the seriousness of the situation. He wants and desires palliative cares only and antibiotics, nebulizers, etc. At this time, he is willing to go swing bed for further cares. He has been for the most part stable. He has not spiked any temps. He has been saturating anywhere from 92% to 95% on 15 L via mask. Lab work has showed stable white blood cell count, kidney function, and CRP is actually down at this time. We will continue with current cares and swing bed. The patient will remain a DNR at his request, but he is willing to continue current cares. We have attempted repeated sputum cultures, and we will get one shortly hopefully for guidance of our antibiotic therapy. COMPLICATIONS: During stay were none. CONSULTATIONS: None. DISPOSITION: Transferred to swing bed. GUNNAR/MAULIK /[id number]
[2021-01-20] MEDS ORDERED: amLODIPine 10 MG Tab PO SCH (08:00)
[2021-01-21] MEDS ORDERED: Hydroxyurea 500 MG Cap PO SCH (08:00)
[2021-01-24] MEDS ORDERED: Piperacillin/Tazobactam 4.5 GM in Sodium Chloride 0.9% 100 ML IV SCH (04:00)
== END 2021-01-19 16:32 | disposition swing bed (61) | DRG 193 ==
LOC: CC.ED 10:50 → SUPCPDRO 10:50 → CC.MS 12:22 → UNDOADMIN 13:25
PROVIDERS: ADMIT Nurse Practitioner Family; ATTEND Family Medicine
DX: J44.0 Chronic obstructive pulmonary disease with (acute) lower respiratory infection (principal); J44.1 Chronic obstructive pulmonary disease with (acute) exacerbation; I50.22 Chronic systolic (congestive) heart failure; I11.0 Hypertensive heart disease with heart failure; J18.9 Pneumonia, unspecified organism; I50.33 Acute on chronic diastolic (congestive) heart failure; J96.90 Respiratory failure, unspecified, unspecified whether with hypoxia or hypercapnia; J43.9 Emphysema, unspecified; D45 Polycythemia vera; Z51.5 Encounter for palliative care; Z66 Do not resuscitate; Z79.51 Long term (current) use of inhaled steroids; F17.210 Nicotine dependence, cigarettes, uncomplicated; Z20.822 Contact with and (suspected) exposure to COVID-19; K21.9 Gastro-esophageal reflux disease without esophagitis; N40.0 Benign prostatic hyperplasia without lower urinary tract symptoms; M19.90 Unspecified osteoarthritis, unspecified site; J30.9 Allergic rhinitis, unspecified; Z79.82 Long term (current) use of aspirin; Z79.899 Other long term (current) drug therapy; Z85.46 Personal history of malignant neoplasm of prostate
CPT/HCPCS: 36415; 36600; 71045; 80053; 82550; 82803; 83605; 83880; 84484; 85025; 85379; 85610; 85730; 86140; 93005; 94640; 99285; U0002; 80048; 80202; 87070; 87205; 93010; A9270-GY; J1650; J1940; J2270; J2543; J2930; J3370; J7050; J7613-GY; J7620-GY

== ENCOUNTER 2021-01-19 16:38 | Inpatient (IN) | payer MEDICARE ==
[2021-01-19] MEDS ORDERED: Formoterol/Mometasone 200-5 MCG 8.8 GM Inhaler IH PRN (17:31)
[2021-01-19] MEDS ORDERED: LORazepam 2 MG/ML Syringe IVPUSH PRN ×2 (17:31→19:00)
[2021-01-19] MEDS ORDERED: Albuterol 0.083% 2.5 MG/3 ML Neb Soln NEB PRN (17:31)
[2021-01-19] MEDS ORDERED: Acetaminophen 325 MG Tab PO PRN (17:31)
[2021-01-19] MEDS ORDERED: Sodium Chloride 0.9% 10 ML Syringe FLUSH PRN ×2 (17:31)
[2021-01-19] MEDS: Albuterol/Ipratropium 3.0-0.5 MG/3 ML Neb Soln NEB SCH (19:03)
[2021-01-19] MEDS: methylPREDNISolone Sodium Succinate 125 MG/2 ML SDV IVPUSH SCH (19:03)
[2021-01-19] MEDS: guaiFENesin 200 MG Tab PO SCH (19:03)
[2021-01-19] MEDS ORDERED: atorvaSTATin 20 MG Tab PO SCH (20:00)
[2021-01-19] MEDS ORDERED: Tamsulosin 0.4 MG Cap.ER PO SCH (20:00)
[2021-01-19] MEDS ORDERED: Piperacillin/Tazobactam 4.5 GM in Sodium Chloride 0.9% 100 ML IV SCH (20:00)
[2021-01-20] MEDS ORDERED: Piperacillin/Tazobactam 4.5 GM in Sodium Chloride 0.9% 100 ML IV SCH (04:00)
[2021-01-20] MEDS: Pantoprazole 40 MG Tab.CR PO SCH ×2 (07:01→07:14)
[2021-01-20] MEDS: Albuterol/Ipratropium 3.0-0.5 MG/3 ML Neb Soln NEB SCH (07:14)
[2021-01-20] MEDS: methylPREDNISolone Sodium Succinate 125 MG/2 ML SDV IVPUSH SCH (07:38)
[2021-01-20] MEDS: guaiFENesin 200 MG Tab PO SCH (07:38)
[2021-01-20] MEDS ORDERED: Fluticasone Propionate Nasal Spray 16 GM Bottle NAS SCH (08:00)
[2021-01-20] MEDS ORDERED: Aspirin 81 MG Tab.EC PO SCH (08:00)
[2021-01-20] MEDS ORDERED: amLODIPine 10 MG Tab PO SCH (08:00)
[2021-01-20] MEDS ORDERED: Folic Acid 1 MG Tab PO SCH (08:00)
[2021-01-20] MEDS ORDERED: Lisinopril 20 MG Tab PO SCH (08:00)
[2021-01-20] MEDS ORDERED: Finasteride 5 MG Tab PO SCH (08:00)
[2021-01-20] MEDS ORDERED: Loratadine 10 MG Tab PO SCH (08:00)
[2021-01-20] MEDS ORDERED: Hydroxyurea 500 MG Cap PO SCH (08:00)
[2021-01-20] MEDS ORDERED: Enoxaparin 40 MG/0.4 ML Syringe SUBCUT SCH (08:00)
[2021-01-20] MEDS ORDERED: Cholecalciferol (Vitamin D3) 25 MCG Tab PO SCH (08:00)
[2021-01-20] MEDS ORDERED: Nicotine 14 MG/24 Hr Patch TRDERM SCH (08:00)
[2021-01-20] MEDS ORDERED: Vitamin B Complex Cap PO SCH (08:00)
[2021-01-20] MEDS: Morphine 2 MG/ML SYRINGE IVPUSH PRN ×11 (08:29→19:20)
[2021-01-20] MEDS: Atropine 1% Ophth Soln 5 ML BOTTLE SL PRN ×10 (08:34→19:20)
[2021-01-20] MEDS ORDERED: LORazepam 2 MG/ML Syringe IVPUSH PRN (11:24)
--- NOTE | 2021-01-20 12:38 | PN ---
DATE: 01/20/2021 S: Mr. Oliva this morning is becoming more lethargic and apneic. Sats are dropping. Family is present and we had a long discussion. They are agreeable to comfort measures. Brief exam was done. O: LUNGS: He has rhonchus throughout with rales in both bases. He will have grunting respirations with extremely poor air movement throughout. ASSESSMENT: 1. IMPENDING RESPIRATORY FAILURE. 2. BIBASILAR PNEUMONIA. P: Comfort measures are ordered. Family are present at bedside and we are going to start using morphine judiciously to keep him from struggling. MJP/MODL /[id number]
[2021-01-21] MEDS ORDERED: Hydroxyurea 500 MG Cap PO SCH (08:00)
[2021-01-24] MEDS ORDERED: Piperacillin/Tazobactam 4.5 GM in Sodium Chloride 0.9% 100 ML IV SCH (04:00)
--- NOTE | 2021-01-27 10:28 | DISCH ---
ADMISSION DIAGNOSES: 1. Bibasilar pneumonia. 2. Chronic obstructive pulmonary disease with exacerbation. 3. Respiratory failure. DISCHARGE DIAGNOSIS: 1. BIBASILAR PNEUMONIA. 2. CHRONIC OBSTRUCTIVE PULMONARY DISEASE WITH EXACERBATION. 3. RESPIRATORY FAILURE. HISTORY: The patient was transferred to swing bed from [facility] with respiratory failure and pneumonia. He has known and advanced COPD. He has documented pneumonia and was clinically doing very poor. He had declined any aggressive measures including transfer and/or intubation. He has been managed with basically a 15 L mask. We ultimately transferred him to swing bed. SWING BED COURSE: The day after being placed on swing bed, the patient was becoming more apneic and lethargic. He was having a harder time maintaining his sats and was going into worsening respiratory failure. Family and the patient had decided on comfort measures. He was put on morphine as needed and all antibiotics and other aggressive measures were stopped completely. The patient peacefully with family at his side. COMPLICATIONS: During swing bed stay none. CONSULTATIONS: None. DISPOSITION: [facility] notified for transport. MIA /[id number]
== END 2021-01-20 22:35 | disposition expired | DRG 193 ==
LOC: UNDOADMIN 16:38 → CC.MS 16:38
PROVIDERS: ADMIT Family Medicine; ATTEND Family Medicine
DX: J18.9 Pneumonia, unspecified organism (principal); J96.00 Acute respiratory failure, unspecified whether with hypoxia or hypercapnia; I50.32 Chronic diastolic (congestive) heart failure; J43.9 Emphysema, unspecified; Z51.5 Encounter for palliative care; I11.0 Hypertensive heart disease with heart failure; Z66 Do not resuscitate; D45 Polycythemia vera
CPT/HCPCS: 94640; A9270-GY; J2060; J2270; J2543; J2930; J3370; J7050; J7620-GY